=== PATIENT | male | born 1980 | race Caucasian/White ===

== ENCOUNTER 2021-07-08 10:17 | Emergency (ER) | payer OTHER ==
[~2021-07-08] VITALS: Ht 182.9 cm; Wt 86.2 kg
[~2021-07-08 10:17] MED LIST: AMOX1TAB12 PO; INTESTINEX1 CA1 PO; NASONEX17 GM NS; SINGULAIR 10MG10 MG PO; TUSSI PRES-B L120 M1 PO; TUSSIONEX PENNKI5 ML PO; ZITHROMAX TRI-500 MG PO
== END 2021-07-08 14:12 | disposition home or self-care (01) ==
LOC: ER 10:17
DX: K82.4 Cholesterolosis of gallbladder (principal)